=== PATIENT | male | born 1990 | race Caucasian/White ===

== ENCOUNTER 2018-08-08 18:59 | Emergency (ER) | payer SELFPAY ==
[~2018-08-08] VITALS: Ht 167.6 cm; Wt 67.3 kg
[2018-08-08 19:19] VITALS: BP 134/84; PULSE 63; RESP 20; Ht 167.6 cm; Wt 67.3 kg
== END 2018-08-08 21:31 | disposition left against medical advice (07) ==
LOC: E/R 18:59
DX: Z53.21 Procedure and treatment not carried out due to patient leaving prior to being seen by health care provider (principal)
CPT/HCPCS: 93005